=== PATIENT | female | born 1995 | race African-American/Black ===

== ENCOUNTER 2019-03-21 15:12 | Emergency (ER) | payer SELFPAY ==
[2019-03-21 15:26] VITALS: BP 111/73; PULSE 74; TEMP 98; BMI 32.2
--- NOTE | 2019-03-21 16:11 | PDOC ---
History of Present Illness - General Chief Complaint: Laceration Stated Complaint: LAC RT THUMB Time Seen by Provider: 03/21/19 15:30 History Source: Patient - History of Present Illness Timing/Duration: reports: yesterday Location: reports: hands Past History - Past Medical History Allergies/Adverse Reactions: Allergies Allergy/AdvReac Type Severity Reaction Status Date / Time No Known Allergies Allergy Verified 03/21/19 15:26 COPD: No - Immunization History Immunization Up to Date: Yes - Suicide/Smoking/Psychosocial Hx Smoking History: Never smoked Review of Systems - Review of Systems Constitutional: No: Chills, Fever *Physical Exam - Vital Signs Last Vital Signs Temp Pulse Resp BP Pulse Ox 98 F 74 18 111/73 99 03/21/19 15:21 03/21/19 15:21 03/21/19 15:21 03/21/19 15:21 03/21/19 15:21 - Physical Exam General Appearance: Yes: Apparent Distress. No: Appropriately Dressed HEENT: positive: Normal Voice Respiratory/Chest: negative: Respiratory Distress Integumentary: positive: Dry, Warm, Other (~1.5cm cutaneous lac along base of R thumb, FROMI, sensation intact) Neurologic: positive: Fully Oriented, Alert, Normal Mood/Affect Procedures - Laceration/Wound Repair Right Finger Wound Length: to 2.5 cm Wound's Depth, Shape: superficial Irrigated w/ Saline: Yes Betadine Prep: Yes Wound Repaired With: Dermabond Splint Applied: Yes (splint placed given wound near joint) Medical Decision Making - Medical Decision Making 03/21/19 16:11 23 yo F w/ lac to base of R thumb after accidentally grabbing knife while washing dishes last night. No sensory changes. Tetanus UTD See exam Minor thumb lac No e/o complications Tetanus UTD -Dermabond repair -To return for wound check as needed *DC/Admit/Observation/Transfer Diagnosis at time of Disposition: Thumb laceration Qualifiers: Encounter type: initial encounter Damage to nail status: without damage Foreign body presence: without foreign body Laterality: right Qualified Code(s) : S61.011A - Laceration without foreign body of right thumb without damage to nail, initial encounter - Discharge Dispostion Disposition: HOME Condition at time of disposition: Good - Referrals - Patient Instructions Printed Discharge Instructions: Laceration Repair Additional Instructions: Do not use antibiotic ointment as it can break down the adhesive. You can shower while the adhesive is on your skin, but do not take a bath or soak or scrub the area for 7 to 10 days. Dry your skin by patting it gently with a towel. The adhesive will peel off on its own, usually by 5 to 10 days. If after 10 days , you still have adhesive on you, you can use antibiotic ointment or petroleum jelly to get it off. You do not need to see the doctor again unless the wound doesnt heal well or you have signs of infection, such as redness, swelling, or pus. - Post Discharge Activity
== END 2019-03-21 16:13 | disposition home or self-care (01) ==
LOC: JERFT 15:12
PROC: 0HQFXZZ Repair Right Hand Skin, External Approach (ICD-10-PCS; principal; 2019-03-21)
DX: S61.011A Laceration without foreign body of right thumb without damage to nail, initial encounter (principal); W26.0XXA Contact with knife, initial encounter; Y93.G1 Activity, food preparation and clean up; Y92.009 Unspecified place in unspecified non-institutional (private) residence as the place of occurrence of the external cause
CPT/HCPCS: 99281-25